=== PATIENT | female | born 1985 | race Caucasian/White ===

== ENCOUNTER 2022-06-02 17:03 | Observation (INO) | payer BC, OTHER ==
[~2022-06-02] VITALS: Ht 175.3 cm; Wt 115.7 kg
[2022-06-02 17:28] LABS: BASOPHILS % (AUTO) 0.8 % (0.0-5.0); EOSINOPHILS % (AUTO) 2.2 % (0.0-8.0); HEMATOCRIT 38.5 % (36-48); LYMPHOCYTES % (AUTO) 26.4 % (21.0-51.0); MEAN CORPUSCULAR HEMOGLOBIN 31.5 pg (27.0-33.0); MEAN CORPUSCULAR HGB CONC 33.8 g/dL (32.0-36.0); MEAN CORPUSCULAR VOLUME 93.2 fL (79-99); MONOCYTES % (AUTO) 8.3 % (3.0-13.0); NEUTROPHILS % (AUTO) 61.9 % (40.0-77.0); PLATELET COUNT (AUTO) 239 K/uL (130-400); RED BLOOD CELL COUNT(AUTO) 4.13 MIL/uL (4.00-5.50); RED CELL DISTRIBUTION WIDTH 12.3 % (11.0-15.5); WHITE BLOOD COUNT (AUTO) 9.5 K/uL (4.8-10.8)
[2022-06-02 17:35] LABS: POTASSIUM 3.5 mmol/L (3.5-5.1)
[2022-06-02 17:40] LABS: ALBUMIN 3.1 g/dL (3.5-5.0); TOTAL PROTEIN, SERUM 6.9 g/dL (6.0-8.3)
[2022-06-02 18:02] LABS: APPEARANCE,URINE CLEAR (CLEAR); BILIRUBIN,URINE NEGATIVE (NEGATIVE); COLOR,URINE YELLOW (YELLOW); GLUCOSE, URINE (UA) NEGATIVE (NEGATIVE); KETONES,URINE NEGATIVE (NEGATIVE); LEUKOCYTE ESTERASE ,URINE NEGATIVE Leu/uL (NEGATIVE); NITRATE,URINE 2+ (NEGATIVE); OCCULT BLOOD,URINE NEGATIVE (NEGATIVE); PH,URINE 5.5 (5.0-8.0); PROTEIN,URINE NEGATIVE (NEGATIVE); UROBILINOGEN,URINE 0.2 mg/dL (0.2-1.0)
[2022-06-02 18:06] LABS: BACTERIA,URINE MOD /HPF (None Seen); MUCUS,URINE RARE LPF (None Seen); RBC,URINE 0-1 /HPF (0-1); SQUAMOUS EPITHELIAL CELL,UR RARE /HPF (0-2); WBC,URINE 0-1 /HPF (0-1)
[2022-06-02] MEDS ORDERED: CEFTRIAXONE 1G VIAL IVP ONE (19:00)
[2022-06-02] MEDS ORDERED: IOHEXOL 350 MG/ML 100ML INFUS..BTL IV ONE (19:27)
[2022-06-02] MEDS ORDERED: 0.9%NACL 1000ML 1,000 ML IV ONE (19:30)
[2022-06-02] MEDS ORDERED: ACETAMINOPHEN WITH CODEINE 1 TAB TAB PO PRN (22:00)
[2022-06-02] MEDS ORDERED: DIPHENHYDRAMINE HCL 25 MG CAPSULE PO PRN (22:00)
[2022-06-02] MEDS ORDERED: LACTULOSE 20 GM/30 ML UDCUP PO PRN (22:00)
[2022-06-02] MEDS ORDERED: MORPHINE 4 MG SYG IV PRN (22:00)
[2022-06-02] MEDS ORDERED: ACETAMINOPHEN 325 MG TAB PO PRN ×2 (22:00)
[2022-06-02] MEDS ORDERED: ONDANSETRON 4MG INJ IV PRN (22:00)
[2022-06-02] MEDS ORDERED: MAG/ALUM/SIMETH 30 ML UDCUP PO PRN (22:00)
[2022-06-02] MEDS: CEFTRIAXONE 1G VIAL IV SCH (22:00)
[2022-06-02] MEDS ORDERED: NITROGLYCERIN 0.4 MG SL TAB SL PRN (22:00)
[2022-06-02] MEDS ORDERED: PHARMACY COMMUNICATION MISC SCH (22:30)
[2022-06-02 22:48] LABS: HEMOGLOBIN A1C 4.7 % (4.0-6.0)
[2022-06-02 22:58] LABS: CHOLESTEROL 136 mg/dL (<200); HDL CHOLESTEROL 43 mg/dL (35-85); LDL DIRECT 84 mg/dL (0-99); THYROID STIMULATING HORMONE 0.86 uIU/mL (0.36-3.74); TRIGLYCERIDES 53 mg/dL (30-200)
[2022-06-03 04:00] VITALS: BP 157/95
[2022-06-03 04:44] LABS: HEMATOCRIT 35.4 % (36-48); MEAN CORPUSCULAR HEMOGLOBIN 31.1 pg (27.0-33.0); MEAN CORPUSCULAR HGB CONC 33.3 g/dL (32.0-36.0); MEAN CORPUSCULAR VOLUME 93.4 fL (79-99); RED BLOOD CELL COUNT(AUTO) 3.79 MIL/uL (4.00-5.50); RED CELL DISTRIBUTION WIDTH 12.3 % (11.0-15.5); WHITE BLOOD COUNT (AUTO) 7.4 K/uL (4.8-10.8)
[2022-06-03 04:57] LABS: CREATININE 0.8 mg/dL (0.5-1.5); POTASSIUM 3.4 mmol/L (3.5-5.1)
[2022-06-03 08:00] VITALS: BP 140/86
[2022-06-03] MEDS ORDERED: ASPIRIN 81 MG EC TAB PO SCH (09:00)
[2022-06-03] MEDS ORDERED: PANTOPRAZOLE 40 MG TAB DR PO SCH (09:00)
[2022-06-03] MEDS ORDERED: ENOXAPARIN SODIUM 60 MG/0.6 ML SQ SCH (09:00)
[2022-06-03 12:00] VITALS: BP 149/91
[2022-06-03 16:00] VITALS: BP 144/98
[2022-06-03 20:24] VITALS: BP 153/90
[2022-06-03] MEDS ORDERED: PRED10TA3 PO (20:59)
[2022-06-03] MEDS ORDERED: ATORVASTATIN 40 MG TABLET PO SCH (21:00)
[2022-06-03] MEDS ORDERED: TOPIRAMATE 25 MG TABLET PO SCH (21:00)
[2022-06-03] MEDS: CEFTRIAXONE 1G VIAL IV SCH (21:10)
[2022-06-04 00:04] VITALS: BP 131/79
[2022-06-04 04:22] VITALS: BP 135/84
[2022-06-04] MEDS ORDERED: AMLO5TAB4 PO (07:14)
[2022-06-04] MEDS ORDERED: TOPI25TA42 PO (07:14)
[2022-06-04] MEDS ORDERED: CEFU500T67 PO (07:14)
[2022-06-04] MEDS ORDERED: AMLODIPINE 5 MG TAB PO ONE (07:30)
[2022-06-04 08:00] VITALS: BP 147/75
== END 2022-06-04 08:50 | disposition home or self-care (01) ==
LOC: EDH 17:03 → EDHIP 21:52 → 4CH 06-03 01:42
PROVIDERS: ADMIT Hospitalist; ATTEND Hospitalist
DX: G43.909 Migraine, unspecified, not intractable, without status migrainosus (principal); I10 Essential (primary) hypertension; R00.1 Bradycardia, unspecified; N39.0 Urinary tract infection, site not specified; E66.9 Obesity, unspecified; L50.9 Urticaria, unspecified; K58.1 Irritable bowel syndrome with constipation; N64.4 Mastodynia; R29.700 NIHSS score 0; Z79.899 Other long term (current) drug therapy; Z68.37 Body mass index [BMI] 37.0-37.9, adult
CPT/HCPCS: 96374; 96361; 99285; 83036; 84443; 84484; 80061; 80053; 85025; 87077; 87088; 87186; 81001; 36415 ×2; 70450; 70496; 70498; 93005; 96376; 96372; 80048; 85027; 70551; G0378 ×34; J0696 ×2; Q9967; J1650

== ENCOUNTER 2023-03-18 18:40 | Emergency (ER) | payer OTHER ==
[~2023-03-18] VITALS: Ht 175.3 cm; Wt 117.9 kg
[~2023-03-18 18:40] MED LIST: AMLO5TAB4 PO; CEFU500T67 PO; PRED10TA3 PO
[2023-03-19] MEDS: LACTULOSE 20 GM/30 ML UDCUP PO ONE (00:01)
[2023-03-19] MEDS: PEG 3350/NA SULF,BICARB,CL/KCL 4000 ML SOLN PO ONE (03:35)
[2023-03-19 04:57] VITALS: BP 135/70; PULSE 76; RESP 18; O2SAT 99
== END 2023-03-19 05:05 | disposition home or self-care (01) ==
LOC: EDH 18:40
DX: O26.891 Other specified pregnancy related conditions, first trimester (principal); K59.00 Constipation, unspecified; Z3A.10 10 weeks gestation of pregnancy; Z79.899 Other long term (current) drug therapy; Z98.890 Other specified postprocedural states; Z88.0 Allergy status to penicillin